=== PATIENT | female | born 1965 | race Caucasian/White ===

== ENCOUNTER 2018-04-02 07:46 | Outpatient (CLI) | payer OTHER ==
[~2018-04-02 07:46] MED LIST: BENTYL10 MG/ML IM; CIPRO500 MG PO; FLAGYL500MG PO; LEVSIN/SL0.125 MG SL; ORPH100T PO; PEPCID40 MG PO; TOPROL XL50 M1; UCERIS9 MG; ZANTAC300 MG PO
== END 2018-04-02 07:52 | disposition home or self-care (01) ==
LOC: TOM 07:46
DX: R10.30 Lower abdominal pain, unspecified (principal); K50.00 Crohn's disease of small intestine without complications; K29.00 Acute gastritis without bleeding

== ENCOUNTER → 2018-09-23 13:41 | Outpatient (CLI) | payer OTHER | END | disposition home or self-care (01) | LOC: LAB 13:41 | DX: K50.013 Crohn's disease of small intestine with fistula (principal); R10.30 Lower abdominal pain, unspecified ==

== ENCOUNTER 2018-09-24 08:26 | Outpatient (CLI) | payer OTHER | END 2018-09-24 15:49 | disposition home or self-care (01) | LOC: TOM 08:26 | DX: R10.30 Lower abdominal pain, unspecified (principal); K50.013 Crohn's disease of small intestine with fistula ==

== ENCOUNTER 2021-03-17 08:01 | Inpatient (IN) | payer OTHER ==
[~2021-03-17] VITALS: Ht 162.6 cm; Wt 81.6 kg
--- NOTE | 2021-03-17 08:12 | NUR ---
PTE ALERTA Y ORIENTADA POR JUAN ESFERAS CON BUEN PATRON RESPIRATORIO. REFIERE QUE DESDE EL VIERNES [place] ESTADO CON DOLOR ABDOMINAL Y DOLOR DE ESPALDA. SE UBICA EN GUEVARA DE OBSERVACION.
--- NOTE | 2021-03-17 10:14 | NUR ---
SE RECIBE PTE ALERTA, ORIENTADA EN LAS JUAN ESFERAS. DR. JAY EVALUA PTE. SE ORIENTA PTE SOBRE TRATAMIENTO, SE ADMINISTRAN MEDICAMENTOS Y SE LUBNA MUESTRAS DE ERICKA LITO ORDEN MEDICA. SE CANALIZA PACIENTE EN MANO RT #20 Y SE COMIENZA TERAPIA INTRAVENOSA. SE COORDINA CT ABDOMEN PELVICO CON CONTRASTE IV. SE MANTIENE PTE BAJO OBSERVACION POR DETERIORO.
--- NOTE | 2021-03-17 17:22 | NUR ---
SE RECIBE PTE ALERTA Y ORIENTADA X 3 ESFERAS EN CAMA CON BARANDAS ELEVADAS POR SEGURIDAD. PRESENTANDO BUEN PATRON RESPIRATORIO. RECIBIENDO IV'S 0.9NSS BAJANDO A 150ML/HR AREA ENE DE EDEMA Y ERITEMA. PENDIENTE CONSULTA CON DR.GIL SULLIVAN. SE MANTIENE EN OBSERVACION POR CAMBIOS.
[2021-03-25] MEDS ORDERED: AMOX1TAB5 PO (14:10)
[2021-03-25] MEDS ORDERED: INTESTINEX680 M1 PO (14:11)
[2021-03-25] MEDS ORDERED: PROTONIX40 MG PO (14:11)
== END 2021-03-25 15:35 | disposition home or self-care (01) | DRG 386 ==
LOC: ER 08:01 → SEC-K 17:40 → SURG 17:40 → MEDI 18:55 → SURG 20:41
PROVIDERS: ADMIT Internal Medicine; ATTEND Internal Medicine
PROC: 02HV33Z Insertion of Infusion Device into Superior Vena Cava, Percutaneous Approach (ICD-10-PCS; principal; 2021-03-18)
PROC: 0W9F30Z Drainage of Abdominal Wall with Drainage Device, Percutaneous Approach (ICD-10-PCS; 2021-03-18)
DX: K50.914 Crohn's disease, unspecified, with abscess (principal); K63.2 Fistula of intestine; Z20.822 Contact with and (suspected) exposure to COVID-19; I10 Essential (primary) hypertension

== ENCOUNTER 2021-04-04 12:34 | Inpatient (IN) | payer OTHER ==
[~2021-04-04] VITALS: Ht 162.6 cm; Wt 80.7 kg
[~2021-04-04 12:34] MED LIST changes: +AMOX1TAB5 PO; +INTESTINEX680 M1 PO; +PROTONIX40 MG PO
[2021-04-26] MEDS ORDERED: PERCOCET 5-3251 EACH PO (17:16)
== END 2021-04-26 19:43 | disposition home or self-care (01) | DRG 330 ==
LOC: ER 15:50 → SEC-K 04-05 13:03 → SURH 04-05 13:03 → MEDJ 04-05 13:03 → SURH 04-11 11:01
PROVIDERS: Surgery; ADMIT Internal Medicine; ATTEND Internal Medicine
PROC: 0DBB4ZZ Excision of Ileum, Percutaneous Endoscopic Approach (ICD-10-PCS; 2021-04-21)
PROC: 0DNL4ZZ Release Transverse Colon, Percutaneous Endoscopic Approach (ICD-10-PCS; 2021-04-21)
PROC: 0W9G30Z Drainage of Peritoneal Cavity with Drainage Device, Percutaneous Approach (ICD-10-PCS; 2021-04-21)
PROC: 0DBL4ZZ Excision of Transverse Colon, Percutaneous Endoscopic Approach (ICD-10-PCS; principal; 2021-04-21 08:00)
DX: K50.114 Crohn's disease of large intestine with abscess (principal); N17.8 Other acute kidney failure; K56.50 Intestinal adhesions [bands], unspecified as to partial versus complete obstruction; K50.113 Crohn's disease of large intestine with fistula; Z20.822 Contact with and (suspected) exposure to COVID-19; I10 Essential (primary) hypertension; E86.9 Volume depletion, unspecified